=== PATIENT | female | born 1990 | race Caucasian/White ===

== ENCOUNTER 2017-09-25 12:33 | Emergency (ER) | payer BC ==
[~2017-09-25] VITALS: Ht 175.3 cm; Wt 85.5 kg
[2017-09-25 12:40] VITALS: TEMP 98.6
[2017-09-25] MEDS ORDERED: SEASONIQUE1 TAB (12:44)
[2017-09-25] MEDS ORDERED: XOPENEX HF0.045 MG/A IH (12:44)
[2017-09-25] MEDS ORDERED: PROAIR HFA0.09 MG/AC IH (12:44)
[2017-09-25 13:25] LABS: BASO # 0.1 (0.0-0.2); BASO % 0.8 % (0.0-2.0); EOS % 0.5 % (0-4.0); GRAN # 3.5 (1.4-6.5); GRAN % 52.8 % (42.2-75.2); HEMATOCRIT 41.8 % (37.0-47.0); HEMOGLOBIN 14.1 g/dl (12.5-16.0); LYMPH # 2.7 (1.2-3.4); LYMPH % 40.6 % (20.0-51.0); MEAN CELL VOLUME 90 fl (80.0-100.0); MEAN CORPUSCULAR HEMOGLOBIN 30 pg (27.0-31.0); MEAN CORPUSCULAR HGB CONC 34 g/dl (33.0-37.0); MEAN PLATELET VOLUME 11.2 fl (7.4-10.4); MONO # 0.3 (0.1-0.6); MONO % 5.1 % (1.7-9.3); PLATELET COUNT 230 K/mm3 (130-400); RED BLOOD COUNT 4.65 M/mm3 (4.10-5.30); REDCELL DISTRIBUTION WIDTH-CV 12.1 % (11.5-14.5)
[2017-09-25 13:34] LABS: CALCIUM 9.2 mg/dL (8.4-10.2); CREATININE, serum 0.68 mg/dL (0.52-1.25); POTASSIUM 3.9 mmol/L (3.4-5.0)
[2017-09-25 14:38] VITALS: BP 144/72; PULSE 76
== END 2017-09-25 14:39 | disposition home or self-care (01) ==
LOC: COL.ER 12:33
PROVIDERS: Physician Assistant
DX: J45.901 Unspecified asthma with (acute) exacerbation (principal); Z98.890 Other specified postprocedural states